=== PATIENT | female | born 1945 | race Caucasian/White ===

== ENCOUNTER 2021-10-07 18:44 | Emergency (ER) | payer MEDICARE, BC ==
[2021-10-07] MEDS ORDERED: Doxycycline Monohydrate 100 MG Cap PO ONE (19:25)
== END 2021-10-07 19:40 | disposition home or self-care (01) ==
LOC: DL.ED 18:44
DX: S30.861A Insect bite (nonvenomous) of abdominal wall, initial encounter (principal); W57.XXXA Bitten or stung by nonvenomous insect and other nonvenomous arthropods, initial encounter
CPT/HCPCS: 99282; A9270